=== PATIENT | male | born 1945 | race Caucasian/White ===

== ENCOUNTER 2017-05-31 11:35 | Day surgery (SDC) | payer MEDICARE ==
[~2017-05-31] VITALS: Ht 182.9 cm; Wt 94.8 kg
--- NOTE | ~2017-05-31 | OP ---
Record Of Operation [facility] [address] [place]. [address] NAME: SHANITA CHAN : 41 STATUS : [facility]#: [id number] AGE: 71 ADM/REG DATE : 05/31/17 MR#: [id number] REPORT SERV DATE: 05/31/17 DICTATED BY: RAVI STOVER III DATE: 05/31/17 REPORT STATUS : Draft TRANSCRIBED BY: MODL DATE: 05/31/17 DATE OF PROCEDURE: 05/31/2017 PROCEDURE: Cystoscopy, right retrograde, right ureteroscopic stone removal with insertion of double-J stent. PREOPERATIVE DIAGNOSIS: Right ureteral calculus. POSTOPERATIVE DIAGNOSIS: Right ureteral calculus. ANESTHESIA: General. DESCRIPTION OF PROCEDURE: Following induction of adequate general anesthesia, the patient was placed in the dorsal lithotomy position and prepped and draped in sterile fashion. The urethra was entered and noted to be normal. The prostate was enlarged. The bladder was entered. The stent was somewhat encrusted but was easily pulled out. I could not place a wire through the stent, so I cut off the stent and went alongside the wire. I used a straight ureteroscope to exam into the pelvic to the junction of the mid and distal ureter at the pelvic inlet. No stones were noted. There were some flakes from the encrustation. An 11-Korean 28 cm access sheath was placed over a separate wire and ureteroscopy was done of the mid and distal and proximal ureter. No stone was noted. Once in the kidney, I examined it thoroughly and found what was a 2 to 3 mm stone. It crumbled some when basketed but the bulk of it was removed. A 6 x 26 stent was left in place with a loop in the kidney and a loop in the bladder. A sutures was taped to the penis for later removal. He tolerated the procedure well. OB/MODL Ravi Stover III, M.D. / [id number] CC: Mickey Hamilton III, M.D.
[~2017-05-31 11:35] MED LIST: ASAB PO; CIP5 PO; COZ50; COZ50 PO; DIFFERIN EX; LIPITOR10; LIPITOR10 PO; NORCO1 TA1 PO; ZANTAC 150 PO
== END 2017-05-31 18:50 | disposition home or self-care (01) ==
LOC: SDC 11:35
PROVIDERS: Urology
PROC: 0T768DZ Dilation of Right Ureter with Intraluminal Device, Via Natural or Artificial Opening Endoscopic (ICD-10-PCS; 2017-05-31)
PROC: 0TF38ZZ Fragmentation in Right Kidney Pelvis, Via Natural or Artificial Opening Endoscopic (ICD-10-PCS; principal; 2017-05-31 13:15)
DX: N20.0 Calculus of kidney (principal); E78.5 Hyperlipidemia, unspecified; I10 Essential (primary) hypertension; Z87.442 Personal history of urinary calculi; Z79.899 Other long term (current) drug therapy; Z90.5 Acquired absence of kidney; Z88.1 Allergy status to other antibiotic agents; Z98.890 Other specified postprocedural states
CPT/HCPCS: 74420; 93005; A9270-GY; C1769; C2617; J2370; J2405; J2710; J3010; Q9967